=== PATIENT | female | born 1950 | race Caucasian/White ===

== ENCOUNTER 2019-04-01 17:59 | Emergency (ER) | payer MEDICARE, BC ==
[2019-04-01] MEDS ORDERED: diphenhydrAMINE 50 MG Cap PO ONE (19:09)
[2019-04-01] MEDS ORDERED: Clindamycin HCl 150 MG Cap PO ONE (19:09)
--- NOTE | 2019-04-01 19:16 | EDM.PDOC ---
ED HPI GENERAL MEDICAL PROBLEM - General Chief Complaint: Skin Complaint Stated Complaint: STUNG BY SOMETHING [id number] Time Seen by Provider: 04/01/19 19:10 Source of Information: Reports: Patient History Limitations: Reports: No Limitations - History of Present Illness INITIAL COMMENTS - FREE TEXT/NARRATIVE: was out mowing and something bit her on right foot and now swollen red itchy painful. 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 Right Foot Pain Score (Numeric/FACES): 4 - Related Data Allergies Allergy/AdvReac Type Severity Reaction Status Date / Time bee venom protein (honey bee) Allergy Intermediate Chest Verified 04/01/19 18:39 Tightness Past Medical History Cardiovascular History: Reports: High Cholesterol Respiratory History: Reports: Asthma Gastrointestinal History: Reports: GERD Endocrine/Metabolic History: Reports: Diabetes, Type II Social & Family History - Tobacco Use Smoking Status *Q: Never Smoker Second Hand Smoke Exposure: No - Caffeine Use Caffeine Use: Reports: Coffee, Tea - Alcohol Use Days Per Week of Alcohol Use: 2 Number of Drinks Per Day: 2 Total Drinks Per Week: 4 - Recreational Drug Use Recreational Drug Use: No ED ROS GENERAL - Review of Systems Review Of Systems: ROS reveals no pertinent complaints other than HPI. ED EXAM, SKIN/RASH Exam: See Below Exam Limited By: No Limitations General Appearance: Alert, WD/WN, Mild Distress, Other (discomfort) Ears: Hearing Grossly Normal Throat/Mouth: Normal Voice, No Airway Compromise Head: Atraumatic Neck: Non-Tender, Full Range of Motion Respiratory/Chest: No Respiratory Distress Cardiovascular: Regular Rate, Rhythm GI/Abdominal: Soft, Non-Tender Extremities: Other (inner right foot swollen tender red, no lymphangitis, NV wnl , gait limited to discomfort) Neurological: Alert, Oriented, Normal Cognition, No Motor/Sensory Deficits Psychiatric: Normal Affect, Normal Mood Skin: Warm, Dry, Normal Color Location, Skin: Lower Extremity, Right Associated features: Warmth, Tenderness, Swelling, Inflammation. No: Lymphangitis, Weeping Lymphatic: No Adenopathy Course - Vital Signs Last Recorded V/S: Last Vital Signs Temp 36.9 C 04/01/19 18:34 Pulse 88 04/01/19 18:34 Resp 18 04/01/19 18:34 BP 134/89 04/01/19 18:34 Pulse Ox 100 06/28/19 18:34 - Orders/Labs/Meds Meds: Medications Discontinued Medications Generic Name Dose Route Start Last Admin Trade Name Nat PRN Reason Stop Dose Admin Clindamycin HCl 300 mg 04/01/19 19:09 04/01/19 19:14 Cleocin PO 04/01/19 19:10 300 mg ONETIME ONE Administration Diphenhydramine HCl 50 mg 04/01/19 19:09 04/01/19 19:14 Benadryl PO 04/01/19 19:10 50 mg ONETIME ONE Administration Departure - Departure Time of Disposition: 19:20 Disposition: Home, Self-Care 01 Condition: Good Clinical Impression: Bug bite with infection Qualifiers: Encounter type: initial encounter Qualified Code(s): W57.XXXA - Bitten or stung by nonvenomous insect and other nonvenomous arthropods, initial encounter - Discharge Information Instructions: Insect Bite, Adult, [id number] Forms: ED Department Discharge Additional Instructions: 1) elevate leg as much as possible next 48 hours 2) try ice or heat to sore area 3) take BENADRYL 25MG 4 times daily for itch. 4) recheck if there is any change or concern 5) follow up at clinic rx given; clindamycin 150mg qid x 40
== END 2019-04-01 19:20 | disposition home or self-care (01) ==
LOC: DL.ED 17:59
DX: S90.861A Insect bite (nonvenomous), right foot, initial encounter (principal); E11.9 Type 2 diabetes mellitus without complications; Z91.030 Bee allergy status; W57.XXXA Bitten or stung by nonvenomous insect and other nonvenomous arthropods, initial encounter
CPT/HCPCS: 99281; A9270; Q0163

== ENCOUNTER 2022-03-04 10:51 | Inpatient (IN) | payer MEDICARE, OTHER ==
[2022-03-04] MEDS ORDERED: Albuterol/Ipratropium 3.0-0.5 MG/3 ML Neb Soln INH PRN (11:31)
[2022-03-04] MEDS ORDERED: Bisacodyl 5 MG Tab PO PRN (11:38)
[2022-03-04] MEDS ORDERED: Docusate Sodium 100 MG Cap PO PRN (11:38)
[2022-03-04] MEDS ORDERED: Acetaminophen 325 MG Tab PO PRN (11:38)
[2022-03-04] MEDS ORDERED: Ondansetron 4 MG/2 ML SDV IVPUSH PRN (11:38)
[2022-03-04] MEDS ORDERED: Mineral Oil/Petrolatum,Hydrophilic Ointment 100 GM Jar TOP PRN (11:58)
[2022-03-04] MEDS: Levofloxacin/Dextrose 5%-Water 750 MG in Premix Bag 1 BAG IV SCH (13:08)
[2022-03-04] MEDS: methylPREDNISolone Sodium Succinate 40 MG/1 ML SDV IVPUSH SCH ×2 (13:08→18:12)
[2022-03-04 13:20] LABS: ANION GAP 14.9 mEq/L (7-13)
[2022-03-04] MEDS: Montelukast 10 MG Tab PO SCH (21:21)
[2022-03-04] MEDS: Rosuvastatin 10 MG Tab PO SCH (21:21)
[2022-03-04] MEDS: guaiFENesin 100 MG/5 ML Soln 5 ML UD Cup PO PRN (21:22)
[2022-03-04] MEDS: Omeprazole 20 MG Cap.CR PO PRN (21:27)
[2022-03-04] MEDS: Melatonin 3 MG Tab PO PRN (21:27)
[2022-03-05] MEDS: methylPREDNISolone Sodium Succinate 40 MG/1 ML SDV IVPUSH SCH ×5 (00:07→23:10)
[2022-03-05] MEDS: Sodium Chloride 0.9% 10 ML Syringe FLUSH SCH ×3 (00:07→23:10)
[2022-03-05] MEDS: Benzocaine/Cetylpyridinium/Menthol Lozenge MUCMEM PRN ×2 (00:15→23:06)
[2022-03-05] MEDS: Sodium Chloride 0.9% 10 ML Syringe FLUSH PRN ×2 (06:09→17:48)
[2022-03-05] MEDS: Torsemide 20 MG Tab PO SCH (08:25)
[2022-03-05] MEDS: Famotidine 20 MG Tab PO SCH (08:25)
[2022-03-05] MEDS: Losartan 50 MG Tab PO SCH (08:26)
[2022-03-05] MEDS: Loratadine 10 MG Tab PO SCH (08:26)
[2022-03-05] MEDS: Enoxaparin 40 MG/0.4 ML Syringe SUBCUT SCH (08:26)
[2022-03-05] MEDS: Calcium Carbonate/Vitamin D3 1250 MG-5 MCG Tab PO SCH (08:26)
[2022-03-05] MEDS: Vitamin B Complex Cap PO SCH (08:26)
[2022-03-05] MEDS ORDERED: FLUTICASONE NASBOTH SCH (09:00)
[2022-03-05] MEDS: Levofloxacin/Dextrose 5%-Water 750 MG in Premix Bag 1 BAG IV SCH ×2 (11:28→11:30)
[2022-03-05] MEDS: FLUTICASONE INH SCH (15:39)
[2022-03-05] MEDS: UMECLIDINIUM BROMIDE 62.5 MCG INH SCH (15:39)
[2022-03-05] MEDS: BLST W D INH SCH (15:39)
[2022-03-05] MEDS: VILANTEROL INH SCH (15:39)
[2022-03-05] MEDS: Rosuvastatin 10 MG Tab PO SCH (21:43)
[2022-03-05] MEDS: Melatonin 3 MG Tab PO PRN (21:43)
[2022-03-05] MEDS: BIMATOPROST EYEBOTH SCH (21:43)
[2022-03-05] MEDS: Montelukast 10 MG Tab PO SCH (21:43)
[2022-03-05] MEDS: Omeprazole 20 MG Cap.CR PO PRN (21:49)
[2022-03-05] MEDS: guaiFENesin 100 MG/5 ML Soln 5 ML UD Cup PO PRN (23:06)
[2022-03-06] MEDS: Sodium Chloride 0.9% 10 ML Syringe FLUSH PRN ×2 (06:35→13:06)
[2022-03-06] MEDS: methylPREDNISolone Sodium Succinate 40 MG/1 ML SDV IVPUSH SCH (06:37)
[2022-03-06] MEDS: Loratadine 10 MG Tab PO SCH (08:36)
[2022-03-06] MEDS: Losartan 50 MG Tab PO SCH (08:36)
[2022-03-06] MEDS: Vitamin B Complex Cap PO SCH (08:37)
[2022-03-06] MEDS: Calcium Carbonate/Vitamin D3 1250 MG-5 MCG Tab PO SCH (08:37)
[2022-03-06] MEDS: Famotidine 20 MG Tab PO SCH (08:38)
[2022-03-06] MEDS: Torsemide 20 MG Tab PO SCH (08:38)
[2022-03-06] MEDS: Enoxaparin 40 MG/0.4 ML Syringe SUBCUT SCH (08:38)
[2022-03-06] MEDS: FLUTICASONE NASBOTH SCH (08:41)
[2022-03-06] MEDS: VILANTEROL INH SCH (08:42)
[2022-03-06] MEDS: BLST W D INH SCH (08:42)
[2022-03-06] MEDS: FLUTICASONE INH SCH (08:42)
[2022-03-06] MEDS: UMECLIDINIUM BROMIDE 62.5 MCG INH SCH (08:42)
[2022-03-06] MEDS: Sodium Chloride 0.9% 10 ML Syringe FLUSH SCH ×2 (08:43→20:30)
[2022-03-06] MEDS: predniSONE 20 MG Tab PO SCH (12:15)
[2022-03-06] MEDS: Levofloxacin/Dextrose 5%-Water 750 MG in Premix Bag 1 BAG IV SCH (13:06)
[2022-03-06] MEDS ORDERED: Calcium Carbonate 500 MG Tab.Chew PO PRN (15:18)
[2022-03-06] MEDS: Rosuvastatin 10 MG Tab PO SCH (20:27)
[2022-03-06] MEDS: Omeprazole 20 MG Cap.CR PO PRN (20:27)
[2022-03-06] MEDS: Melatonin 3 MG Tab PO PRN (20:28)
[2022-03-06] MEDS: Montelukast 10 MG Tab PO SCH (20:28)
[2022-03-06] MEDS: BIMATOPROST EYEBOTH SCH (20:33)
[2022-03-07 07:03] LABS: ANION GAP 12.9 mEq/L (7-13)
[2022-03-07] MEDS: Enoxaparin 40 MG/0.4 ML Syringe SUBCUT SCH (08:46)
[2022-03-07] MEDS: Torsemide 20 MG Tab PO SCH (08:46)
[2022-03-07] MEDS: Losartan 50 MG Tab PO SCH (08:47)
[2022-03-07] MEDS: Famotidine 20 MG Tab PO SCH (08:47)
[2022-03-07] MEDS: predniSONE 20 MG Tab PO SCH (08:48)
[2022-03-07] MEDS: Loratadine 10 MG Tab PO SCH (08:48)
[2022-03-07] MEDS: Vitamin B Complex Cap PO SCH (08:48)
[2022-03-07] MEDS: FLUTICASONE NASBOTH SCH (08:48)
[2022-03-07] MEDS: Calcium Carbonate/Vitamin D3 1250 MG-5 MCG Tab PO SCH (08:48)
[2022-03-07] MEDS: UMECLIDINIUM BROMIDE 62.5 MCG INH SCH (08:49)
[2022-03-07] MEDS: BLST W D INH SCH (08:49)
[2022-03-07] MEDS: Sodium Chloride 0.9% 10 ML Syringe FLUSH SCH (08:50)
[2022-03-07] MEDS: VILANTEROL INH SCH (08:59)
[2022-03-07] MEDS: FLUTICASONE INH SCH (08:59)
[2022-03-07] MEDS: Levofloxacin/Dextrose 5%-Water 750 MG in Premix Bag 1 BAG IV SCH ×2 (10:04→13:05)
== END 2022-03-07 13:22 | disposition home or self-care (01) | DRG 194 ==
LOC: DL.MS 10:51
PROVIDERS: ADMIT Internal Medicine; ATTEND Internal Medicine
DX: J18.9 Pneumonia, unspecified organism (principal); J45.901 Unspecified asthma with (acute) exacerbation; E66.9 Obesity, unspecified; G47.33 Obstructive sleep apnea (adult) (pediatric); E78.5 Hyperlipidemia, unspecified; Z99.81 Dependence on supplemental oxygen; D72.829 Elevated white blood cell count, unspecified; T38.0X5A Adverse effect of glucocorticoids and synthetic analogues, initial encounter; Z79.899 Other long term (current) drug therapy; Z91.030 Bee allergy status; Z88.1 Allergy status to other antibiotic agents; E78.00 Pure hypercholesterolemia, unspecified; K21.9 Gastro-esophageal reflux disease without esophagitis; E11.9 Type 2 diabetes mellitus without complications; Z20.822 Contact with and (suspected) exposure to COVID-19
CPT/HCPCS: 36415; 71045; 80048; 85025; 87040; A9270-GY; J1650; J1956; J2920; J3490; J7512; U0002

== ENCOUNTER 2023-04-16 05:10 | Day surgery (SDC) | payer MEDICARE, OTHER ==
[~2023-04-16 05:10] MED LIST: Dextrose 5%-0.45% NaCl 1,000 ML IV SCH
[2023-04-16] MEDS ORDERED: Midazolam 1 MG/ML 2 ML SDV ONE (05:56)
[2023-04-16] MEDS ORDERED: Midazolam 1 MG/ML 2 ML SDV IV ONE ×7 (05:57→06:30)
[2023-04-16] MEDS ORDERED: fentaNYL 100 MCG/2 ML SDV ONE (05:57)
[2023-04-16] MEDS ORDERED: fentaNYL 100 MCG/2 ML SDV IV ONE ×5 (05:57→06:32)
[2023-04-16] MEDS ORDERED: Dextrose 5%-0.45% NaCl 1,000 ML IV SCH (06:00)
== END 2023-04-16 08:20 | disposition home or self-care (01) ==
LOC: DL.ENDO 05:10
PROVIDERS: ATTEND Internal Medicine Gastroenterology
DX: Z12.11 Encounter for screening for malignant neoplasm of colon (principal); D12.2 Benign neoplasm of ascending colon; K51.40 Inflammatory polyps of colon without complications; I10 Essential (primary) hypertension; K21.9 Gastro-esophageal reflux disease without esophagitis; E78.00 Pure hypercholesterolemia, unspecified; N32.81 Overactive bladder; J45.909 Unspecified asthma, uncomplicated; M79.7 Fibromyalgia; E66.09 Other obesity due to excess calories; Z88.0 Allergy status to penicillin; Z88.8 Allergy status to other drugs, medicaments and biological substances; Z68.38 Body mass index [BMI] 38.0-38.9, adult
CPT/HCPCS: 45385; 88305; J2250; J3010; J7042

== ENCOUNTER 2024-04-29 07:00 | Day surgery (SDC) | payer MEDICARE, OTHER ==
[~2024-04-29 07:00] MED LIST changes: -Dextrose 5%-0.45% NaCl 1,000 ML IV SCH; +Midazolam 1 MG/ML 2 ML SDV ONE; +fentaNYL 100 MCG/2 ML SDV ONE
[2024-04-29] MEDS ORDERED: fentaNYL 100 MCG/2 ML SDV IV ONE (07:01)
[2024-04-29] MEDS ORDERED: Midazolam 1 MG/ML 2 ML SDV IV ONE (07:01)
[2024-04-29] MEDS: Dextrose 5%-0.45% NaCl 1,000 ML IV SCH (07:57)
[2024-04-29] MEDS: fentaNYL 100 MCG/2 ML SDV IV ONE ×2 (09:11→09:12)
[2024-04-29] MEDS: Midazolam 1 MG/ML 2 ML SDV IV ONE ×2 (09:12→09:13)
== END 2024-04-29 10:59 | disposition home or self-care (01) ==
LOC: DL.ENDO 07:00
PROVIDERS: ATTEND Internal Medicine Gastroenterology
DX: K22.2 Esophageal obstruction (principal); K44.9 Diaphragmatic hernia without obstruction or gangrene; J45.909 Unspecified asthma, uncomplicated; I10 Essential (primary) hypertension; E78.00 Pure hypercholesterolemia, unspecified; K21.9 Gastro-esophageal reflux disease without esophagitis; E66.9 Obesity, unspecified; Z68.41 Body mass index [BMI] 40.0-44.9, adult; Z79.899 Other long term (current) drug therapy; Z88.0 Allergy status to penicillin; Z91.030 Bee allergy status; Z91.018 Allergy to other foods
CPT/HCPCS: 87077; 88305; J2250; J3010; J7799

== ENCOUNTER 2024-05-10 06:31 | Day surgery (SDC) | payer MEDICARE ==
[2024-05-10] MEDS: Dextrose 5%-0.45% NaCl 1,000 ML IV SCH (06:55)
[2024-05-10] MEDS: fentaNYL 100 MCG/2 ML SDV IV ONE ×5 (08:07→08:20)
[2024-05-10] MEDS: Midazolam 1 MG/ML 2 ML SDV IV ONE ×6 (08:08→08:16)
== END 2024-05-10 09:50 | disposition home or self-care (01) ==
LOC: DL.ENDO 06:31
PROVIDERS: ATTEND Internal Medicine Gastroenterology
DX: Z12.11 Encounter for screening for malignant neoplasm of colon (principal); K57.30 Diverticulosis of large intestine without perforation or abscess without bleeding; R19.5 Other fecal abnormalities; R13.10 Dysphagia, unspecified; I10 Essential (primary) hypertension; J45.909 Unspecified asthma, uncomplicated; E66.9 Obesity, unspecified; G47.33 Obstructive sleep apnea (adult) (pediatric); Z91.030 Bee allergy status; Z91.018 Allergy to other foods; Z88.8 Allergy status to other drugs, medicaments and biological substances; Z88.1 Allergy status to other antibiotic agents; Z68.41 Body mass index [BMI] 40.0-44.9, adult
CPT/HCPCS: G0121; J2250; J3010; J7799